=== PATIENT | female | born 1985 | race Caucasian/White ===

== ENCOUNTER 2020-01-18 21:17 | Emergency (ER) | payer BC ==
[~2020-01-18] VITALS: Ht 165.1 cm; Wt 77.1 kg
[2020-01-18 21:28] VITALS: BP 137/74
[2020-01-18 22:52] LABS: APPEARANCE,URINE CLEAR (CLEAR); BILIRUBIN,URINE NEGATIVE (NEGATIVE); BLOOD, URINE NEGATIVE (NEGATIVE); COLOR,URINE YELLOW (YELLOW); LEUKOCYTE ESTERASE ,URINE NEGATIVE (NEGATIVE); NITRITE, URINE NEGATIVE (NEGATIVE); UGLUCOSE 2+ (NEGATIVE)
[2020-01-18 22:55] LABS: HEMATOCRIT 39.3 % (36-48); HEMOGLOBIN 12.5 g/dL (12.0-16.0); MEAN CORPUSCULAR HEMOGLOBIN 21 pg (27-31); MEAN CORPUSCULAR HGB CONC 32 g/dL (33-37); MEAN CORPUSCULAR VOLUME 64.9 fL (80-94); PLATELET COUNT (AUTO) 338 K/uL (140-450); RED BLOOD CELL COUNT(AUTO) 6.05 MIL/uL (4.20-5.40); RED CELL DISTRIBUTION WIDTH 16.5 % (11.6-13.7); WHITE BLOOD COUNT (AUTO) 14.4 K/uL (4.8-10.8)
[2020-01-18] MEDS: ONDANSETRON 4 MG/2 ML VIAL IVP ONE (22:56)
[2020-01-18] MEDS: MORPHINE SULFATE 4 MG/ML SYR IVP ONE (22:57)
[2020-01-18] MEDS: NACL 0.9% 1,000 ML IV ONE (22:57)
[2020-01-18 23:02] LABS: RBC,URINE 0-5 /HPF (0-5); WBC,URINE 0-5 /HPF (0-5); YEAST,URINE Few /HPF (None Seen)
[2020-01-18 23:22] LABS: EOSINOPHILS % (MANUAL) 1 % (0-4); LYMPHOCYTES % (MANUAL) 8 % (20-46); MONOCYTES % (MANUAL) 4 % (5-12)
[2020-01-19 00:02] LABS: ALBUMIN 4.2 g/dL (3.4-5.0); CARBON DIOXIDE 24.9 mmol/L (21-32); CREATININE 0.7 mg/dL (0.6-1.3); POTASSIUM 3.9 mmol/L (3.5-5.1); TOTAL BILIRUBIN 0.7 mg/dL (0.0-1.0)
[2020-01-19] MEDS: LIDOCAINE VISCOUS 2% 20 ML UDC PO ONE (00:55)
[2020-01-19] MEDS: ALUMINUM HYD/MAG/SIMETHICONE 30 ML UDC PO ONE (00:55)
[2020-01-19] MEDS: DICYCLOMINE HCL LIQUID 10 MG/5 ML UDC PO ONE (00:55)
[2020-01-19] MEDS: PANTOPRAZOLE 40 MG INJ VIAL IVP ONE (00:58)
[2020-01-19 01:04] VITALS: BP 145/75
== END 2020-01-19 01:23 | disposition home or self-care (01) ==
LOC: MED 21:17
DX: R10.13 Epigastric pain (principal)
CPT/HCPCS: 36415; 76705; 80053; 81001; 83690; 84702; 85025; 87086; 96361; 96374; 96375; 99284; C9113; J2270; J2405; J7030; Q0092

== ENCOUNTER 2020-06-15 13:31 | Emergency (ER) | payer BC ==
[~2020-06-15] VITALS: Ht 165.1 cm; Wt 74.8 kg
[2020-06-15 13:47] VITALS: BP 153/87
--- NOTE | 2020-06-15 14:07 | NUR ---
PT AMBULATED TO BED 2.
--- NOTE | 2020-06-15 14:09 | NUR ---
PT TAKEN TO ER BED 2.
[2020-06-15 14:48] LABS: BASOPHILS % (AUTO) 0.3 % (0.0-2.0); EOSINOPHILS # (AUTO) 0.3 K/uL (0-0.4); EOSINOPHILS % (AUTO) 2.6 % (0.0-4.0); HEMATOCRIT 40.2 % (36-48); LYMPHOCYTES # (AUTO) 2.6 K/uL (2.5-16.5); MEAN CORPUSCULAR HEMOGLOBIN 23 pg (27-31); MEAN CORPUSCULAR HGB CONC 32 g/dL (33-37); MEAN CORPUSCULAR VOLUME 71.5 fL (80-94); MONOCYTES # (AUTO) 0.7 K/uL (0.8-1.0); MONOCYTES % (AUTO) 6.1 % (1.7-9.3); NEUTROPHILS # (AUTO) 7.7 K/uL (1.8-7.7); PLATELET COUNT (AUTO) 370 K/uL (140-450); RED BLOOD CELL COUNT(AUTO) 5.63 MIL/uL (4.20-5.40); RED CELL DISTRIBUTION WIDTH 17.5 % (11.6-13.7); WHITE BLOOD COUNT (AUTO) 11.3 K/uL (4.8-10.8)
[2020-06-15 15:02] LABS: ANION GAP 14.6 (8-16); CARBON DIOXIDE 25.5 mmol/L (21-32); CREATININE 0.9 mg/dL (0.6-1.3); POTASSIUM 4.1 mmol/L (3.5-5.1)
[2020-06-15 15:15] LABS: ALBUMIN 3.8 g/dL (3.4-5.0); TOTAL BILIRUBIN 0.5 mg/dL (0.0-1.0)
[2020-06-15] MEDS ORDERED: CEPH500T PO (15:50)
[2020-06-15] MEDS ORDERED: ACET-9800 PO (15:50)
[2020-06-15 16:30] VITALS: BP 130/80
--- NOTE | 2020-06-15 16:30 | NUR ---
Patient discharged with v/s stable. Written and verbal after care instructions given and explained. Patient alert, oriented and verbalized understanding of instructions. Ambulatory with steady gait. All questions addressed prior to discharge. ID band removed. Patient advised to follow up with PMD. Rx of Cephalexin, and Acetaminophen given. Patient educated on indication of medication including possible reaction and side effects. Opportunity to ask questions provided and answered.
== END 2020-06-15 16:30 | disposition home or self-care (01) ==
LOC: MED 13:31
DX: O20.0 Threatened abortion (principal); Z79.899 Other long term (current) drug therapy
CPT/HCPCS: 36415; 76801; 80053; 81002; 81025; 84702; 85025; 86900; 86901; 99284